=== PATIENT | male | born 1965 | race Caucasian/White ===

== ENCOUNTER 2020-08-05 11:29 | Emergency (ER) | payer SELFPAY ==
[~2020-08-05] VITALS: Ht 167.6 cm; Wt 90.0 kg
[~2020-08-05 11:29] MED LIST: ASPI-496 PO; EZET10TA70 PO; LEVO137T3 PO; METO25TA91 PO; PRAS10TA4 PO; ROSU40TA PO; SILD20TA PO; TEST200V IM
--- NOTE | 2020-08-05 11:39 | NUR ---
PT BIBA FOR REACTION TO 2ND COVID VACCINE FROM [facility]. PT C/O THROAT/FACE SWELLING AND FEELING FLUSHED. PT AMBULATORY FROM [facility] TO [facility]. PT CHANGED INTO GOWN. MONITORS IN PLACE. O2 SATURATION 94% ON RA.
--- NOTE | 2020-08-05 12:24 | NUR ---
PT LAYING ON GURNEY, WATCHING TV. NADN/VSS. NO NEEDS AT THIS TIME. CALL LIGHT WITHIN REACH
[2020-08-05 12:50] VITALS: BP 118/82
--- NOTE | 2020-08-05 13:20 | NUR ---
Patient given discharge instructions and they have confirmed that they understand the instructions. Patient ambulatory with steady gait.
== END 2020-08-05 13:21 | disposition home or self-care (01) ==
LOC: ED 12:40
DX: J98.01 Acute bronchospasm (principal); T36.0X5A Adverse effect of penicillins, initial encounter; R00.1 Bradycardia, unspecified; Y92.89 Other specified places as the place of occurrence of the external cause
CPT/HCPCS: 93005; 99283